=== PATIENT | female | born 1970 | race Two or more races ===

== ENCOUNTER 2020-05-07 08:09 | Emergency (ER) | payer SELFPAY ==
[2020-05-07 08:15] VITALS: BP 119/88
--- NOTE | 2020-05-07 09:24 | ER Document Report ---
ED GI/ - General Chief Complaint: Urinary Problem Stated Complaint: PAINFUL URINATION Time Seen by Provider: 05/07/20 09:22 Mode of Arrival: Ambulatory Information source: Patient Notes: 49-year-old Sinhala [place] with dysuria symptoms. Patient reports she is from [place] and originally from [facility]. Patient speaks Sinhala and appears to understand [place] Sinhala language. She reports she has lived in this country for many years as well as [place]. She reports her father is a senior information systems architect in [facility]. Patient reports she is usually very active with running and denies any vaginal discharge or STDs. She reports no change in her underwear or soaps or detergents and denies any new toilet papers. TRAVEL OUTSIDE OF THE [place] IN LAST 30 DAYS: Yes - [place] - [facility] Patient complains to provider of: Abdominal pain, Dysuria. No: Hematuria, Pelvic pain, Vaginal discharge, Vaginal pain, Vomiting - Related Data Allergies/Adverse Reactions: No Known Allergies Allergy (Unverified 05/07/20 09:53) Past Medical History - General Information source: Patient - Social History Smoking Status: Never Smoker Cigarette use (# per day): No Chew tobacco use (# tins/day): No Smoking Education Provided: No Frequency of alcohol use: None Drug Abuse: None Lives with: Family Family History: Reviewed & Not Pertinent Patient has suicidal ideation: No Patient has homicidal ideation: No Review of Systems - Review of Systems Constitutional: See HPI, Weakness EENT: No symptoms reported Cardiovascular: No symptoms reported Respiratory: No symptoms reported Gastrointestinal: No symptoms reported Genitourinary: No symptoms reported, See HPI, Burning, Dysuria, Frequency, Pain, Urgency. denies: Discharge, Flank pain, Hematuria, Incontinence, Retention Female Genitourinary: No symptoms reported Musculoskeletal: No symptoms reported Skin: No symptoms reported Hematologic/Lymphatic: No symptoms reported Neurological/Psychological: No symptoms reported -: Yes All other systems reviewed and negative Physical Exam - Vital signs Vitals: Pulse Resp BP Pulse Ox 75 16 119/88 H 98 05/06/20 08:12 05/06/20 08:12 05/06/20 08:12 05/06/20 08:12 Interpretation: Hypertensive - General General appearance: Appears well, Alert - HEENT Head: Normocephalic, Atraumatic Eyes: Normal Pupils: PERRL - Respiratory Respiratory status: No respiratory distress Chest status: Nontender Breath sounds: Normal Chest palpation: Normal - Cardiovascular Rhythm: Regular Heart sounds: Normal auscultation Murmur: No - Abdominal Inspection: Normal Distension: No distension Bowel sounds: Normal Tenderness: Tender - suprapubic Organomegaly: No organomegaly - Rectal Hemorrhoids: Other - deferred - Genitourinary Bimanuel exam: Other - deferred - Back Back: Normal, Nontender - Extremities General upper extremity: Normal inspection, Nontender, Normal color, Normal ROM, Normal temperature General lower extremity: Normal inspection, Nontender, Normal color, Normal ROM, Normal temperature, Normal weight bearing. No: Mer's sign - Neurological Neuro grossly intact: Yes Cognition: Normal Orientation: AAOx4 Reddy Coma Scale Eye Opening: Spontaneous Reddy Coma Scale Verbal: Oriented Reddy Coma Scale Motor: Obeys Commands [place] Coma Scale Total: 15 Speech: Normal Motor strength normal: LUE, RUE, LLE, RLE Sensory: Normal - Psychological Associated symptoms: Normal affect, Normal mood - Skin Skin Temperature: Warm Skin Moisture: Dry Skin Color: Normal Course - Vital Signs Vital signs: Temp Pulse Resp BP Pulse Ox 75 16 119/88 H 98 05/06/20 08:12 05/06/20 08:12 05/06/20 08:12 05/06/20 08:12 - Laboratory Results Laboratory Results Interpreted: 05/07/20 09:21 Urine Protein 100 H Urine Ketones TRACE H Urine Blood LARGE H Ur Leukocyte Esterase LARGE H Urine Ascorbic Acid 40 H Critical Laboratory Results Reviewed: Yes Attending or Supervising Physician who Reviewed Labs: VIJAY HENSLEY JR - Radiology Results Critical Radiology Results Reviewed: No Critical Results Attending or Supervising Physician who Reviewed Radiology: VIJAY HENSLEY JR Discharge - Discharge Clinical Impression: UTI (urinary tract infection) Qualifiers: Urinary tract infection type: acute cystitis Hematuria presence: without hematuria Qualified Code(s): N30.00 - Acute cystitis without hematuria Condition: Stable Disposition: HOME, SELF-CARE Additional Instructions: Encourage fluids; return to ER as needed take medicines as directed; avoid sodas or Pepsi-Cola Coca-Cola in general. Avoid toilet paper that may cause irritation to vulva or urethra. Follow-up with your doctor as needed. Your symptoms may persist for another 1 to 3 days. You may try some [id number] Pyridium as needed for discomfort.. Prescriptions: Ciprofloxacin HCl [Cipro 500 mg Tablet] 500 mg PO BID #20 tablet
[2020-05-07 09:39] LABS: APPEARANCE,URINE CLOUDY; BILIRUBIN,URINE NEGATIVE (NEGATIVE); GLUCOSE, URINE NEGATIVE (NEGATIVE); KETONES,URINE TRACE mg/dL (NEGATIVE); LEUKOCYTE ESTERASE,URINE LARGE (NEGATIVE); NITRITE,URINE NEGATIVE (NEGATIVE); PROTEIN,URINE 100 mg/dL (NEGATIVE); URINE SPECIFIC GRAVITY 1.027; UROBILINOGEN,URINE NEGATIVE mg/dL (<2.0)
[2020-05-07 09:46] LABS: COLOR,URINE YELLOW
[2020-05-07] MEDS ORDERED: CEFTRIAXONE INJ 1000 MG VIAL IM ONE (10:02)
[2020-05-07] MEDS ORDERED: LIDOCAINE 1% INJ (10 MG/ML) 10 ML MDV ONE (10:04)
== END 2020-05-07 10:16 | disposition home or self-care (01) ==
LOC: ER 08:09
DX: N30.00 Acute cystitis without hematuria (principal); R53.1 Weakness
CPT/HCPCS: 99284; 96372; 87086; 87088; 81001; J0696; 87186